=== PATIENT | female | born 1940 | race Caucasian/White ===

== ENCOUNTER 2018-09-02 13:53 | Emergency (ER) | payer OTHER, BC ==
[~2018-09-02] VITALS: Ht 157.5 cm; Wt 68.0 kg
[~2018-09-02 13:53] MED LIST: ASPIRIN EC325 MG PO; ASPIRIN325 PO; FOLIC ACID0.4 MG PO; GLUCOSAMINE HC500 MG; NORCO 5-325 TA1 EACH PO; PRAVACHOL20 MG PO; STRESS B-COMPL1 EACH PO
[2018-09-02] MEDS ORDERED: VITAMIN D5000 UNIT PO (14:44)
[2018-09-02] MEDS ORDERED: DITROPAN XL5 M1 PO (14:47)
[2018-09-02] MEDS ORDERED: ONDANSETRON HCL4 M2 PO (16:13)
[2018-09-02] MEDS ORDERED: NORCO 5-325 TA1 EACH PO (16:13)
[2018-09-02] MEDS ORDERED: SENNA8.6 MG PO (16:13)
[2018-09-02 16:36] VITALS: BP 159/92
== END 2018-09-02 16:36 | disposition home or self-care (01) ==
LOC: ER 13:53
DX: S42.412A Displaced simple supracondylar fracture without intercondylar fracture of left humerus, initial encounter for closed fracture (principal); E78.00 Pure hypercholesterolemia, unspecified; Z88.5 Allergy status to narcotic agent; W18.39XA Other fall on same level, initial encounter; Y93.89 Activity, other specified; Y92.89 Other specified places as the place of occurrence of the external cause; Y99.8 Other external cause status